=== PATIENT | female | born 1995 | race Caucasian/White ===

== ENCOUNTER → 2020-09-17 | Outpatient (CLI) | payer MEDICAID | LOC: ZCOL.LAB 21:41 | DX: Z20.828 Contact with and (suspected) exposure to other viral communicable diseases (principal) ==

== ENCOUNTER 2020-12-16 08:48 | Inpatient (IN) | payer MEDICAID ==
[~2020-12-16] VITALS: Ht 157.5 cm; Wt 79.1 kg
[2020-12-16] VITALS (44 sets, daily range): BP systolic 88–145; BP diastolic 53–94; PULSE 84–126; TEMP 97.9–98.7
--- NOTE | 2020-12-16 08:55 | NUR ---
0855- PATIENT AMBULATORY TO THE UNIT WITH FIANCE BY HER SIDE. REPORTS GFM, NO LOF, NO BLEEDING AND CONTRACTIONS THAT ARE ANYWERE FROM 5-12 MINUTES APART BUT GETTING MORE INTENSE. BEEN DEBBIE SINCE ABOUT 0600 THIS MORNING. ORIENTATED TO ROOM AND CHANGED INTO A CLEAN GOWN 0902- EFM AND TOCO ON AND TRACING, VITALS TAKEN, ASSESSMENT COMPLETED. DISCUSSED PLAN OF CARE. PATIENT VERBALIZED UNDERSTANDING AND DENIES FURTHER NEEDS. 09- SVE . CALL LIGHT WITHIN REACH. CALLED AND NOTIFIED DOCTOR, SEE PHYSICIAN NOTIFICATION.
[2020-12-16] MEDS ORDERED: UNISOM25 MG PO (09:16)
[2020-12-16] MEDS ORDERED: PRENATAL TABLET PO (09:17)
--- NOTE | 2020-12-16 12:00 | NUR ---
1200-Assumed care of patient. Recieved report from Johan BROOKS and Charge nurse Dagoberto,CECILIA. Patient in bed WL with IVF to RH, scanned Pen G per GBS protocol and order, see EMAR. Reviewed plan of care. 1240-Difficulty tracing FHR due to maternal positioning. RN adjusts EFM, Repositioned patient WR. 1300-Patient up to void and back to bed WR. 1325-SVE by this RN, /-3, BOWI. Patient up to BB. RN frequently adjusts EFM due to difficulty maintaining continous tracing on BB>
[2020-12-16 12:10] LABS: BASO # 0.1 (0.0-0.2); BASO % 0.3 % (0.0-2.0); EOS # 0.3 (0.0-0.7); EOS % 1.9 % (0-4.0); GRAN # 11.9 (1.4-6.5); GRAN % 80.8 % (42.2-75.2); HEMATOCRIT 31.7 % (37.0-47.0); HEMOGLOBIN 9.9 g/dl (12.5-16.0); LYMPH # 1.7 (1.2-3.4); LYMPH % 11.7 % (20.0-51.0); MEAN CELL VOLUME 78 fl (80.0-100.0); MEAN CORPUSCULAR HEMOGLOBIN 24 pg (27.0-31.0); MEAN CORPUSCULAR HGB CONC 31 g/dl (33.0-37.0); MEAN PLATELET VOLUME 9.9 fl (7.4-10.4); MONO # 0.7 (0.1-0.6); MONO % 4.7 % (1.7-9.3); PLATELET COUNT 405 K/mm3 (130-400); RED BLOOD COUNT 4.06 M/mm3 (4.10-5.30); REDCELL DISTRIBUTION WIDTH-CV 16.3 % (11.5-14.5)
[2020-12-16 12:19] LABS: TRICYCLIC ANTIDEPRESS URINE NEGATIVE
--- NOTE | 2020-12-16 15:50 | NUR ---
1550-Patient sitting upright on bedside for epidrual. JOHNATHAN Thomas to room. 1153-SS administered by JOHNATHAN Thomas, patient tolerated well, see anesthesia record. 1600-Dr. Hughes on unit. Reviews FHR monitor. Patient with bp 93/55, reports feeling "nauseated and tired." 10mg Ephedrine given per protocol see EMAR. 1615-SVE by /-2, AROM clear fluid. Maternal BP 126/66.
--- NOTE | 2020-12-16 16:45 | NUR ---
1645-Cedeno to DD, clear yellow urine. SVE 5/70/-2. Continues to feel nauseated BP 88/54, HR 90. 10MG ephedrine given per protocol see EMAR.
--- NOTE | 2020-12-16 17:05 | NUR ---
82/50 maternal BP. 10mg Ephedrine given per protocol. See EMAR. 1707-JOHNATHAN Thomas notified, see anesthesia notification. 1710-Epidural pump stopped per JOHNATHAN Thomas order. 1733-JOHNATHAN Thomas on unit to check on patient. No changes made. 1800-Dr. Hughes notified, see MD notification.
--- NOTE | 2020-12-16 18:34 | NUR ---
JOHNATHAN Thomas resumed epidural pump, see anesthesia record.
[2020-12-17] VITALS (22 sets, daily range): BP systolic 94–155; BP diastolic 44–95; PULSE 100–153; TEMP 97.8–99
--- NOTE | 2020-12-17 01:50 | NUR ---
Provider continues to stay on unit until delivery. 0230-SVE per provider C/+2. Discusses VAVD attempt with FHR decelerations. Pt agrees to attempt VAVD. Coached on pushing with vacuum. 0233-Vacuum applied. Pt begins pushing. Moves vertex well. 0235-Difficulty establishing baseline due to fluctuation of FHR with pushing. Provider remaines at bedside. 0248-VAVD of viable male infant attended by Dr. Hughes. NC x 1. Cord clamped x 2 and cut from umbilicus. Infant dried and placed on mother's abdomen. Cord stat sent. Care of to Tigre Booth RN. Apgars 8/9/9. 0250- of placenta. Pitocin bolus infusing per protocol. Fundus frim at umbilicus. Bleeding WNL. Second degree laceration repaired by provider. Pericare performed. Ice pack applied. Pt updated on POC. Bed locked in low position. Call light within reach. No questions or concerns at this time.
--- NOTE | 2020-12-17 01:52 | NUR ---
Dr. Hughes at bedside. SVE per provider AL. Pt coached on pushing efforts. Begins pushing with provider. Cervix noted after several rounds of pushing. Pt to continue to labor. Repositioned PP.
--- NOTE | 2020-12-17 02:46 | NUR ---
First pop-off noted
--- NOTE | 2020-12-17 10:14 | NUR ---
Initial visit; Parents thanked Child Welfare Manager for offering congratulations and God's blessings for the of their son. Child Welfare Manager thanked family for choosing [facility].
--- NOTE | 2020-12-17 15:00 | NUR ---
Rests in bed, alert. gift consultant visits with patient.
[2020-12-18 00:35] VITALS: BP 106/51; PULSE 101; TEMP 98.9
[2020-12-18 07:51] VITALS: BP 104/68; PULSE 76; TEMP 98.1
[2020-12-18] MEDS ORDERED: IBU800 M1 PO (08:45)
--- NOTE | 2020-12-18 11:02 | NUR ---
rack room worker met with patient and father of the baby. Patient plans discharge today and states she has everything she needs for the baby. Patient states that she is enrolled in [facility] [employer] and will be returning to work and continues to secure daycare. Worker provided written and verbal information on local resources and encouraged Parents as Teachers in home education program. Patient had history of cannabinoid use, however, was negative at time of delivery. Nursing staff deny concerns related to safety.
--- NOTE | 2020-12-19 15:58 | NUR ---
The baby's cord blood came back all negative.
== END 2020-12-18 13:15 | disposition home or self-care (01) | DRG 807 ==
LOC: LDRO 08:48 → LDR 11:30 → OB 11:30
PROVIDERS: Obstetrics & Gynecology; ADMIT Obstetrics & Gynecology
PROC: 10D07Z6 Extraction of Products of Conception, Vacuum, Via Natural or Artificial Opening (ICD-10-PCS; principal; 2020-12-17)
PROC: 0KQM0ZZ Repair Perineum Muscle, Open Approach (ICD-10-PCS; 2020-12-17)
PROC: 10907ZC Drainage of Amniotic Fluid, Therapeutic from Products of Conception, Via Natural or Artificial Opening (ICD-10-PCS; 2020-12-17)
DX: O76 Abnormality in fetal heart rate and rhythm complicating labor and delivery (principal); Z37.0 Single live birth; O99.824 Streptococcus B carrier state complicating childbirth; O69.81X0 Labor and delivery complicated by cord around neck, without compression, not applicable or unspecified; O70.1 Second degree perineal laceration during delivery; Z3A.39 39 weeks gestation of pregnancy
CPT/HCPCS: J2405; J2540; J2590; J7120